=== PATIENT | female | born 1990 | race Caucasian/White ===

== ENCOUNTER → 2018-03-17 | Outpatient (CLI) | payer MEDICAID | LOC: FIMAGING 09:20 | PROVIDERS: ATTEND Family Medicine | DX: M62.830 Muscle spasm of back (principal) | CPT/HCPCS: 82607-90 ==

== ENCOUNTER 2018-10-17 22:38 | Emergency (ER) | payer MEDICAID ==
[2018-10-17 22:44] VITALS: BP 138/89
--- NOTE | 2018-10-17 23:11 | EDPHY ---
H & P Stated Complaint: sore throat, painful cough, SOB, fever-like. Taking OTC meds Time Seen by Provider: 10/17/18 23:06 HPI/ROS: HPI: This is a 28-year-old female who presents with Chief Complaint: sore throat, painful cough, SOB, fever-like. Taking OTC meds Location: Left ear Quality: Pain Duration: 1 day Signs and Symptoms: + subjective fever, no nausea, no vomiting, no diarrhea, no urinary symptoms, + chest pain, no shortness of breath, no wheezing, + nonproductive harsh cough, + sore throat, no neck stiffness, no joint pain, no swollen glands, no ear pain, no rash Timing: Onset, worsening Severity: Moderate Context: Patient is generally healthy, mother of 2 young children, presents with 1 day history of sore throat, painful harsh cough, shortness of breath and feeling feverish. After further questioning, she complains most of left ear pain. Denies any tinnitus, neck stiffness, chills, fatigue, your discharge, decreased hearing. Has not tried any [id number] medications. Received influenza vaccine this year. Complains of anterior generalized chest pain with coughing episodes. Modifying Factors: None Comment: ROS: A comprehensive 10 system review of systems is otherwise negative aside from elements mentioned in the history of present illness. MEDICAL/SURGICAL/SOCIAL HISTORY: Medical history: Childhood asthma. Does not take any regular medications. LMP 1 week ago. Surgical history: x2 Social history: with children. Family history noncontributory. CONSTITUTIONAL: Well-developed, well-nourished, adult white female, nontoxic in appearance, polite and cooperative, awake and alert, no obvious distress HEENT: Atraumatic and normocephalic, PERRL, EOMI. Nares patent; no rhinorrhea; no nasal mucosal edema. Right Tympanic membranes clear. Left tympanic membrane is bright red and bulging with skewed borders. Oropharynx clear, no tonsillar hypertrophy, no tonsillar erythema, uvula midline no exudate and moist pink mucosa. Airway patent. No lymphadenopathy. No meningismus. Cardiovascular: Normal S1/S2, regular rate, regular rhythm, without murmur rub or gallop. PULMONARY/CHEST: Symmetrical and reproducible generalized anterior tenderness between the rib spaces. Clear to auscultation bilaterally. Good air movement. No accessory muscle usage. ABDOMEN: Soft, nondistended, nontender, no rebound, no guarding, no peritoneal signs, no masses or organomegaly. No CVAT. EXTREMITIES: 2/2 pulses, strength 5/5, no deformities, no clubbing, no cyanosis or edema. NEUROLOGICAL: no focal neuro deficits. GCS 15. SKIN: Warm and dry, no erythema. no rash. Good capillary refill. Source: Patient Exam Limitations: No limitations - Personal History LMP (Females 10-55): 1-7 Days Ago Current Tetanus/Diphtheria Vaccine: Yes Current Tetanus Diphtheria and Acellular Pertussis (TDAP): Yes - Medical/Surgical History Hx Asthma: No Hx Chronic Respiratory Disease: No Hx Diabetes: No Hx Cardiac Disease: No Hx Renal Disease: No Hx Cirrhosis: No Hx Alcoholism: No Hx HIV/AIDS: No Hx Splenectomy or Spleen Trauma: No Other PMH: x2, childhood asthma - Social History Smoking Status: Never smoked Constitutional: Initial Vital Signs Temperature (C) 36.6 C 10/17/18 22:41 Heart Rate 88 10/17/18 22:41 Respiratory Rate 20 10/17/18 22:41 Blood Pressure 138/89 H 10/17/18 22:41 O2 Sat (%) 95 10/17/18 22:41 O2 Delivery Mode Room Air Allergies/Adverse Reactions: tree nut [Nuts] Allergy (Verified 10/17/18 22:40) Home Medications: Medication Instructions Recorded Amoxicillin/Clavulanate Pot 875 mg PO BID #14 tab 10/17/18 [Augmentin 875 MG TAB (*)] Medical Decision Making ED Course/Re-evaluation: Vital signs reviewed and stable upon arrival. No systemic signs. Left tympanic membrane shows infection; no signs of perforation; Augmentin given as well as prescription for same Also given Decadron 10 mg and ibuprofen 600 mg I suspect patient has costochondritis and not acute coronary syndrome. Wells criteria is low for pulmonary embolism. Heart score=low risk No signs of dehydration, meningitis, sinusitis, tonsillar abscess This patient was seen under the supervision of my secondary supervising physician. I evaluated and cared for this patient independently. Differential Diagnosis: Adult fever including but not limited to viral syndromes including influenza, urinary tract infection, pneumonia and sepsis. Departure - Departure Disposition: Home, Routine, Self-Care Clinical Impression: Left acute otitis media, Acute costochondritis Condition: Good Instructions: Ear Infection (ED), Costochondritis (ED) Additional Instructions: Take Tylenol 650 mg every 4 hours and/or Ibuprofen 600 mg every 8 hours with food as needed for pain. Take antibiotic as indicated. Do not skip a dose. Consume a minimum of 8-10 glasses of water or electrolyte fluid replacement drinks that include Gatorade, Powerade, Pedialyte. Referrals: Deirdre Christian MD [Primary Care Provider] - As per Instructions Prescriptions: Amoxicillin/Clavulanate Pot [Augmentin 875 MG TAB (*)] 875 mg PO BID #14 tab
[2018-10-17] MEDS ORDERED: AMOXICILLIN/CLAVULANATE POT 875/125 MG TAB PO ONE (23:12)
[2018-10-17] MEDS ORDERED: DEXAMETHASONE 4 MG TAB PO ONE (23:12)
[2018-10-17] MEDS ORDERED: IBUPROFEN 800 MG TAB PO ONE (23:12)
== END 2018-10-17 23:19 | disposition home or self-care (01) ==
DX: H66.92 Otitis media, unspecified, left ear (principal); M94.0 Chondrocostal junction syndrome [Tietze]